=== PATIENT | male | born 1960 | race Caucasian/White ===

== ENCOUNTER → 2017-10-27 | Outpatient (CLI) | payer BC ==
[~2017-10-27] MED LIST: ASPCH81X PO; ATEN50TA8 PO; ATOR-24 PO; EPP3/2 IM; HYDR12.55 PO; LEVO200T6 PO; LSN5 PO; MCR5 PO; METF500T PO
--- NOTE | 2017-10-27 14:15 | DIAGNOSTIC IMAGING REPORT ---
CAROTID DOPPLER NECK ART CLINICAL HISTORY: 57 years-old Male with B/O CAROTID ARTERY STENOSIS. COMPARISON: Carotid Doppler to 12/30/2013 TECHNIQUE: Multiple real time sonographic images of the carotid bifurcations were obtained assessing bang scale, color Doppler and spectral wave form appearance FINDINGS: RIGHT INTERNAL CAROTID: The peak systolic velocity measured 68 cm/sec. The end diastolic velocity measured 27 cm/sec. The ICA to CCA ratio measured 1.4 which correlates with a stenosis of 0-50%. No significant atherosclerotic plaquing. LEFT INTERNAL CAROTID: The peak systolic velocity measured 95 cm/sec. The end diastolic velocity measured 34 cm/sec. The ICA to CCA ratio measured 1.2 which correlates with a stenosis of 0-50%. No significant atherosclerotic plaquing. There is normal antegrade vertebral flow bilaterally. IMPRESSION: 1. No hemodynamically significant stenosis or significant atherosclerotic plaquing. 2. Normal antegrade vertebral flow bilaterally. The above report was generated using voice recognition software. It may contain grammatical, syntax or spelling errors. Electronically signed by: Andrei Suarez M.D. 10/27/2017 2:13 PM Dictated Date/Time: 10/27/2017 2:11 PM
== END | disposition home or self-care (01) ==
LOC: C.ULTR 10:10
PROVIDERS: ATTEND Physician Assistant Medical
DX: I65.23 Occlusion and stenosis of bilateral carotid arteries (principal)

== ENCOUNTER 2024-07-07 18:07 | Observation (INO) ==
[2024-07-07 18:12] VITALS: TEMP 97.7
[2024-07-07 18:40] LABS: Basophils # (auto) 0.05 K/uL (0.00-0.20); Basophils % (auto) 0.7 %; Eosinophils # (auto) 0.28 K/uL (0.00-0.50); Eosinophils % (auto) 3.9 %; Hematocrit (blood only) 43.6 % (42.0-52.0); Hemoglobin 14.4 g/dl (14.0-18.0); Immature Granulocytes # (auto) 0.03 K/uL (0.01-0.20); Immature Granulocytes % (auto) 0.4 %; Lymphocytes # (auto) 2.12 K/uL (1.20-3.40); Lymphocytes % (auto) 29.3 %; Mean Corpuscular Hemoglobin 31.4 pg (25.0-34.0); Mean Corpuscular Volume 95.2 fL (80.0-100.0); Mean Platelet Volume 10.3 fL (9.4-12.4); Monocytes # (auto) 0.44 K/uL (0.11-0.59); Monocytes % (auto) 6.1 %; Neutrophils # (auto) 4.31 K/uL (1.40-6.50); Neutrophils % (auto) 59.6 %; Platelet Count 168 K/uL (130-400); RDW Coefficient of Variation 14.4 % (11.5-14.5); RDW Standard Deviation 49.7 fL (36.4-46.3); Red Blood Count 4.58 M/uL (4.70-6.10); White Blood Count 7.23 K/ul (4.8-10.8)
--- NOTE | 2024-07-07 18:41 | Emergency Department Note ---
Impression & Plan Chest pain, SOB (shortness of breath), Bronchitis, Esophagitis ED Provider Note CHIEF COMPLAINT: Chest pain HISTORY OF PRESENTING ILLNESS: This 63-year-old male patient presents to the emergency department for evaluation of chest pain that started 2 days ago. The patient initially thought it was a pulled muscle from twisting weird. He stayed home from work yesterday to rest without improvement of the symptoms. He went to work today and the symptoms got worse. He feels like there is a tightness in his chest that goes all the way around his chest and radiates into his back. He denies abdominal pain, but the chest pain is near the epigastric area. He is also having some shortness of breath. He rates his discomfort as 8/10. He denies a previous history of heart problems. He states that his last cardiac workup was over 20 years ago. Family history of strokes, but no family history of heart problems that he knows of. No history of pancreatitis. He denies nausea or vomiting. No fevers. He denies any cough or URI symptoms. He smokes 1 ppd. Denies vaping. Rare ETOH use. He is not on any blood thinners. He has a history of DM and HTN. He took 81 mg ASA this morning. The patient does have a port in place due to his history of prostate cancer. However, he is no longer receiving medication through his port. REVIEW OF SYSTEMS: See HPI for pertinent positives and pertinent negatives. ALLERGIES: Honey bees MEDICATIONS: See below PAST MEDICAL HISTORY: See below PHYSICAL EXAM: VITALS: Vitals are noted on the nurse's note and reviewed by myself. GENERAL: Non toxic, no acute distress, non-diaphoretic. SKIN: Capillary refill <2 sec. EYES: PERRLA. EOMI. Conjunctivae without injection, sclerae without icterus. NOSE: Patent without discharge. MOUTH: Mucous membranes moist. Uvula midline. Airway patent. NECK: Supple without nuchal rigidity. HEART: Regular rate and rhythm without murmurs gallops or rubs. LUNGS: Clear to auscultation bilaterally without wheezes, rales or rhonchi. No retractions or accessory muscle use. CHEST: No chest wall tenderness, but the patient points to the sternal area in the center of the chest for where he has the most pain. ABDOMEN: Positive bowel sounds x 4. Normal tympanic percussion. Soft, mildly tender to palpation in the epigastric area. No masses or organomegaly. Noriega sign negative. No guarding or rebound tenderness. No focal RLQ or LLQ tenderness. MUSCULOSKELETAL: No gross musculoskeletal defects. Peripheral pulses 2+ and equal in the bilateral upper and lower extremities. NEURO: Patient was alert and oriented. No focal neurological deficits. DIFFERENTIAL DIAGNOSIS: Differential diagnosis includes angina, NC, pericarditis, myocarditis, aortic dissection, pleurisy, pneumothorax, PE, pneumonia, pneumomediastinum, esophagitis, esophageal spasm, GERD, perforated esophagus, perforated duodenal/gastric ulcer, pancreatitis, cholecystitis, costochondritis, musculoskeletal, bronchitis, URI, or others. ED COURSE AND MEDICAL DECISION MAKING: MEDICATIONS GIVEN: 500 mL normal saline solution bolus. Tylenol 1000 mg IV. Protonix 40 mg IV and Pepcid 20 mg IV. Nitroglycerin 0.4 mg sublingual. DuoNeb treatment. Morphine 4 mg IV and Zofran 4 mg IV. MONITOR: Continuous panel monitor: Order was placed for continuous panel monitor. Patient was placed on the panel monitor and continuous pulse ox. Patient was noted to be in normal sinus rhythm at an initial rate of 86 bpm per my interpretation. EKG: EKG was interpreted by myself as normal sinus rhythm at 83 bpm with left axis deviation, but no acute ST or T wave changes. INTERPRETATION OF LABS: I interpreted the labs with full lab results as below in the lab section of this note. Pertinent lab results discussed in the MDM section below. INTERPRETATION OF IMAGING: Imaging studies were interpreted by myself and read by radiology as per the imaging section of this note. Chest x-ray negative for acute cardiopulmonary etiology. CTA of the chest with IV contrast was negative for PE. It does show mild bronchial wall thickening which could represent bronchitis. There is mild prominence of the wall of the esophagus which may represent esophagitis. Stable sclerotic lesion in the left seventh rib with old left-sided rib fracture deformities. Mild atherosclerotic changes in the aorta, but no aortic aneurysm or dissection. CT scan of the abdomen pelvis with IV contrast showed mild prominence of the bladder wall which is nonspecific. Stable sclerotic lesions in the pelvic bones. No other acute abnormalities. CONSULTATIONS: On-call hospitalist MDM SUMMARY: The patient was seen during a time of extreme volume and extreme acuity. Nursing triage protocols were initiated with IV lock, labs, and/or imaging studies conducted by protocol in the triage area. The patient was initially evaluated in a triage room and then re-evaluated once they were taken back to an exam room. The patient started with central and substernal chest pain 2 days ago that radiates to his back and wraps around his upper abdomen per patient. He states that he took off work yesterday to try to rest, but had worsening symptoms today when he went back to work. He denies a personal or family history of heart problems, but does have diabetes and high blood pressure. He smokes 1 pack/day, but denies vaping. He is having some shortness of breath with the symptoms as well. He denies any fevers, cough, or URI symptoms at this time. Chest x-ray, EKG, and initial high-sensitivity troponin did not show any acute abnormalities. White blood cell count normal at 7.23. Hemoglobin normal at 14.4. Platelet count normal at 168. Coags were normal. Glucose 166, but CMP otherwise normal. Lipase normal. Magnesium normal. Repeat high-sensitivity troponin was normal. Urinalysis unremarkable. COVID-negative. CTA of the chest with IV contrast was negative for PE. It does show mild bronchial wall thickening which could represent bronchitis. There is mild prominence of the wall of the esophagus which may represent esophagitis. Stable sclerotic lesion in the left seventh rib with old left-sided rib fracture deformities. Mild atherosclerotic changes in the aorta, but no aortic aneurysm or dissection. CT scan of the abdomen pelvis with IV contrast showed mild prominence of the bladder wall which is nonspecific. Stable sclerotic lesions in the pelvic bones. No other acute abnormalities. The patient had been hydrated with 500 mL normal saline solution bolus. Initially the patient was given Tylenol 1000 mg IV and Pepcid 20 mg IV in the waiting room without any change in his symptoms. Once the patient was taken back to a room and placed on a monitor, he was given sublingual nitroglycerin without any change in his symptoms. Once the results of the CT scans were received, he was given Protonix 40 mg IV and a DuoNeb treatment. However, this did not change his symptoms either. He was then given morphine 4 mg IV and Zofran 4 mg IV. The patient did have some episodes of PVCs and bigeminy on the monitor during his stay. The patient is still complaining of the same chest pain and shortness of breath for which he presented to the ER. While the symptoms may be secondary to his bronchitis and/or esophagitis, I recommended admission due to his continued symptoms despite the treatment above to rule out other cardiac or pulmonary etiologies of his symptoms. I spoke with the on-call hospitalist who agreed to admit the patient for further management. Please refer to their dictation for further details. The patient's care was transferred in stable condition. DIAGNOSIS: Chest pain Shortness of breath Bronchitis Esophagitis Past Med/Surg History Problem List (Updated 07/08/24 @ 00:37 by Gabi Martines PA-C) Esophagitis (Acute) Bronchitis (Acute) SOB (shortness of breath) (Acute) Chest pain (Acute) Post-op pain (Acute) Knee pain, left Effusion, left knee Left knee DJD Encounter for pre-operative examination Encounter for pre-operative examination BRICE (dyspnea on exertion) Benign essential hypertension Atherogenic dyslipidemia BRICE (dyspnea on exertion) History of colon polyps BPH loc w urin obs/LUTS Elevated PSA Urinary urgency Prostate cancer Fatigue Urinary retention UTI (urinary tract infection) Medical History (Updated 07/08/24 @ 00:37 by Gabi Martines PA-C) Prostate cancer Hx of prostatic malignancy dx mid may 2023, current chemo tx. 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 BPH (benign prostatic hyperplasia) BRICE (dyspnea on exertion) Chronic/stable- can do one flight of stairs without significant SOB or chest pain History of transient ischemic attack (TIA) Around 2009- no residual issues- no issues since that time Hypothyroid Sleep apnea CPAP Elevated cholesterol Hypertension Diabetes Surgical History (Updated 09/03/23 @ 10:16 by Maya Germain RN) Port-A-Cath in place (09/03/23) Access Port Placement Left Cephalic Vein(Left) - Alex Galan MD, FACS History of tooth extraction History of tonsillectomy History of cardiac cath [place] > over 10 yrs ago no stents; no longer w/cardio. History of arthroscopy Left Knee Arthroscopy, Debridement Bipartite Patella Excision, Lateral Release, Synovectomy, Chondroplasty(Left) - Loki Salcedo MD History of colonoscopy History of lung surgery BIOPSY - REMOTE HX - RIGHT Family History Father Diabetes Family/Other Breast cancer Other Coronary heart disease Social History (Updated 08/25/23 @ 16:27 by Ivon Felipe RN) Smoking Status: Current every day smoker Tobacco Type: Cigarettes packs per day: 1; Cigarettes Per Day: 20; Second Hand Exposure: No; Do You Dip or Chew Tobacco: Yes (quit 20 years ago; advised); Hx Alcohol Use: Yes Alcohol type: hard liquor Hx Substance Use: No Preferred Language: French Communication Ability: Effective Visual Impairment: No Limitations Nougat Candy Maker Helper Required: No Beliefs That Will Affect Care: None marital status: Current Living Situation: Parent Current Living Situation Comment: Patient lives with his mother (mother in his house), 2 LIV current occupational status: employed 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 How many Children do You have: 3 Other Information That Helps Us Care for You: No Feels Safe at Home: Yes Safety Concerns: Feels Safe At This Time during the past year weight has: remained stable Assistive Devices: Denture - Upper and Glasses Allergies Allergies Allergy/AdvReac Type Severity Reaction Status Date / Time bee venom protein (honey bee) Allergy Severe ANAPHYLAXIS Verified 07/07/24 21:20 Home Meds Home Medications Medication Instructions Recorded Confirmed atorvastatin 80 mg tablet 80 mg PO HS 05/31/20 07/07/24 glyburide 5 mg tablet 5 mg PO BID 05/31/20 07/07/24 levothyroxine 200 mcg tablet 200 mcg PO QAM 05/31/20 07/07/24 (Euthyrox) metformin 500 mg tablet 1,000 mg PO BID 05/31/20 07/07/24 metoprolol succinate 50 mg 50 mg PO QAM 05/31/20 07/07/24 tablet,extended release 24 hr lisinopril 5 mg tablet 2.5 mg PO QAM 09/13/20 07/07/24 ibuprofen 200 mg capsule 400 mg PO QAM 11/29/20 07/07/24 turmeric 400 mg capsule 400 mg PO DAILY 11/29/20 07/07/24 tamsulosin 0.4 mg capsule (Flomax) 0.8 mg PO QAM 08/26/23 07/07/24 enzalutamide 40 mg capsule (Xtandi) 0 mg PO QPM 07/07/24 07/07/24 multivitamin with minerals-folic 1 tab PO DAILY 07/07/24 07/07/24 acid 400 mcg-lycopene 370 mcg tablet (One-A-Day Men's 50 Plus) semaglutide 0.25 mg or 0.5 mg (2 5 mg subcut WK 07/07/24 07/07/24 mg/3 mL) subcutaneous pen injector (Ozempic) Results & Data (ED) Vital Signs Vital Signs - 24 hr 07/07/24 18:08 07/07/24 20:12 07/07/24 20:39 Temperature 36.5 C Temperature Source Temporal Artery Scan Pulse Rate 84 71 67 Pulse Rate from SpO2 Sensor 71 67 Respiratory Rate 20 13 13 Respiratory Effort / Characteristics Non-Labored Spontaneous Respiratory Depth Normal Respiratory Pattern Regular Blood Pressure 159/84 H 135/87 127/81 Blood Pressure [Right Arm] Blood Pressure Mean 109 103 96 Blood Pressure Mean [Right Arm] Pulse Oximetry 97 94 96 Oxygen Delivery Method Room Air Sepsis Recent Fever Within 48 Hours No Sepsis New/Unexplained Change in Mental Status N/A Sepsis Action Taken by Nursing No Action Required 07/07/24 20:46 07/07/24 21:01 07/07/24 21:53 Temperature Temperature Source Pulse Rate 68 Pulse Rate from SpO2 Sensor Respiratory Rate 14 Respiratory Effort / Characteristics Respiratory Depth Respiratory Pattern Blood Pressure 100/83 116/65 Blood Pressure [Right Arm] Blood Pressure Mean 84 77 Blood Pressure Mean [Right Arm] Pulse Oximetry 95 96 Oxygen Delivery Method Room Air Sepsis Recent Fever Within 48 Hours Sepsis New/Unexplained Change in Mental Status Sepsis Action Taken by Nursing 07/07/24 22:48 07/07/24 23:00 07/07/24 23:00 Temperature Temperature Source Pulse Rate 87 74 Pulse Rate from SpO2 Sensor 87 69 Respiratory Rate 17 28 H Respiratory Effort / Characteristics Respiratory Depth Respiratory Pattern Blood Pressure 141/71 H 146/84 H Blood Pressure [Right Arm] Blood Pressure Mean 94 120 Blood Pressure Mean [Right Arm] Pulse Oximetry 100 100 Oxygen Delivery Method Sepsis Recent Fever Within 48 Hours Sepsis New/Unexplained Change in Mental Status Sepsis Action Taken by Nursing 07/07/24 23:00 07/07/24 23:00 07/07/24 23:00 Temperature Temperature Source Pulse Rate Pulse Rate from SpO2 Sensor Respiratory Rate Respiratory Effort / Characteristics Respiratory Depth Respiratory Pattern Blood Pressure 146/84 H 146/84 H 146/84 H Blood Pressure [Right Arm] Blood Pressure Mean 120 120 120 Blood Pressure Mean [Right Arm] Pulse Oximetry Oxygen Delivery Method Sepsis Recent Fever Within 48 Hours Sepsis New/Unexplained Change in Mental Status Sepsis Action Taken by Nursing 07/07/24 23:10 07/07/24 23:30 07/07/24 23:30 Temperature Temperature Source Pulse Rate 84 Pulse Rate from SpO2 Sensor Respiratory Rate Respiratory Effort / Characteristics Respiratory Depth Respiratory Pattern Blood Pressure 152/88 H 152/88 H Blood Pressure [Right Arm] Blood Pressure Mean 125 125 Blood Pressure Mean [Right Arm] Pulse Oximetry Oxygen Delivery Method Sepsis Recent Fever Within 48 Hours Sepsis New/Unexplained Change in Mental Status Sepsis Action Taken by Nursing 07/07/24 23:30 07/07/24 23:30 07/07/24 23:30 Temperature Temperature Source Pulse Rate Pulse Rate from SpO2 Sensor Respiratory Rate Respiratory Effort / Characteristics Respiratory Depth Respiratory Pattern Blood Pressure 152/88 H 152/88 H 152/88 H Blood Pressure [Right Arm] Blood Pressure Mean 125 125 125 Blood Pressure Mean [Right Arm] Pulse Oximetry Oxygen Delivery Method Sepsis Recent Fever Within 48 Hours Sepsis New/Unexplained Change in Mental Status Sepsis Action Taken by Nursing 07/07/24 23:30 07/08/24 00:00 Temperature Temperature Source Pulse Rate 84 Pulse Rate from SpO2 Sensor 86 Respiratory Rate 20 Respiratory Effort / Characteristics Respiratory Depth Normal Respiratory Pattern Blood Pressure Blood Pressure [Right Arm] 129/82 Blood Pressure Mean Blood Pressure Mean [Right Arm] 97 Pulse Oximetry 95 Oxygen Delivery Method Room Air Sepsis Recent Fever Within 48 Hours Sepsis New/Unexplained Change in Mental Status Sepsis Action Taken by Nursing Laboratory Data 07/07/24 18:17 07/07/24 18:17 Lab Results 07/07/24 07/07/24 07/07/24 Range/Units 18:17 20:30 Unknown WBC 7.23 (4.8-10.8) K/ul RBC 4.58 L (4.70-6.10) M/uL Hgb 14.4 (14.0-18.0) g/dl Hct 43.6 (42.0-52.0) % MCV 95.2 (80.0-100.0) fL MCH 31.4 (25.0-34.0) pg MCHC 33.0 (32.0-36.0) g/dL RDW Std Deviation 49.7 H (36.4-46.3) fL RDW Coeff of Froylan 14.4 (11.5-14.5) % Plt Count 168 (130-400) K/uL MPV 10.3 (9.4-12.4) fL Immature Gran % (Auto) 0.4 % Neut % (Auto) 59.6 % Lymph % (Auto) 29.3 % [place] % (Auto) 6.1 % Eos % (Auto) 3.9 % Baso % (Auto) 0.7 % Neut # (Auto) 4.31 (1.40-6.50) K/uL Lymph # (Auto) 2.12 (1.20-3.40) K/uL [place] # (Auto) 0.44 (0.11-0.59) K/uL Eos # (Auto) 0.28 (0.00-0.50) K/uL Baso # (Auto) 0.05 (0.00-0.20) K/uL Immature Gran # (Auto) 0.03 (0.01-0.20) K/uL PT 9.9 (9.0-12.0) Seconds INR 0.9 (0.9-1.1) APTT 22 (21-31) Seconds PTT Ratio 0.8 Sodium 140 (136-145) mmol/L Potassium 4.1 (3.5-5.1) mmol/L Chloride 105 (98-107) mmol/L Carbon Dioxide 28 (21-32) mmol/L Anion Gap 7 (3-11) BUN 17 (6-23) mg/dl Creatinine 0.92 (0.6-1.4) mg/dl Est Cr Clr Drug Dosing 119.1 ml/min Est GFR ( Amer) 103.7 ml/min Est GFR (Non-Af Amer) 89.5 ml/min BUN/Creatinine Ratio 18.5 (10-20) Glucose 166 H (70-99(Fasting)) mg/dl Calcium 9.2 (8.6-10.3) mg/dl Magnesium 1.7 (1.7-2.4) mg/dl Total Bilirubin 0.6 (0.2-1.0) mg/dl AST 17 (13-39) U/L ALT 15 (7-52) U/L Alkaline Phosphatase 91 (34-104) U/L Troponin I High Sens 4.0 4.0 (0-20) pg/ml Total Protein 6.8 (6.0-8.3) gm/dl Albumin 4.0 (3.4-5.0) gm/dl Globulin 2.8 (2.5-4.0) gm/dl Albumin/Globulin Ratio 1.4 (0.9-2) Lipase 40 (11-82) U/L Urine Color Yellow Urine Appearance Clear (Clear) Urine pH 5.0 (4.5-7.5) Ur Specific Beauty > 1.045 H (1.000-1.030) Urine Protein Negative (Negative) Urine Glucose (UA) Negative (Negative) Urine Ketones Negative (Negative) Urine Blood Negative (Negative) Urine Nitrite Negative (Negative) Urine Bilirubin Negative (Negative) Urine Urobilinogen Negative (Negative) Ur Leukocyte Esterase Negative (Negative) SARS-CoV-2, RNA, NAAT NEGATIVE (NEGATIVE) Administered Medications Discontinued Medications Albuterol (Albut/Ipratrop 3mg/0.5mg Neb 3 Ml Vial) 3 ml NEB NOW STA; Protocol Stop: 07/07/24 21:42 Last Admin: 07/07/24 22:41 Dose: 3 ml Documented By: ELBA Sodium Chloride (Nss) 500 mls @ 999 mls/hr IV .Q31M ONE Stop: 07/07/24 19:20 Last Infusion: 07/07/24 19:41 Dose: Infused Documented By: Admin: 07/07/24 19:01 Dose: 999 mls/hr Documented By: AKI Acetaminophen (Ofirmev) 1,000 mg in 100 mls @ 400 mls/hr IV NOW STA Stop: 07/07/24 19:04 Last Infusion: 07/07/24 19:41 Dose: Infused Documented By: Admin: 07/07/24 19:00 Dose: 400 mls/hr Documented By: AKI Famotidine (Pepcid 20mg Iv Push) 20 mg in 5 mls @ 2.5 mls/min IV NOW STA Stop: 07/07/24 18:51 Last Admin: 07/07/24 19:01 Dose: 2.5 mls/min Documented By: AKI Pantoprazole Sodium 40 mg/ (Syringe) 10 mls @ 5 mls/min IV NOW ONE Stop: 07/07/24 21:19 Last Admin: 07/07/24 22:48 Dose: 5 mls/min Documented By: ELBA Ioversol (Optiray 320 125ml) 118 ml IV ONCE ONE Stop: 07/07/24 19:21 Last Admin: 07/07/24 19:20 Dose: 118 ml Documented By: SAM Morphine Sulfate (Morphine Sulfate 4 Mg/Ml 1 Ml Carp\Vial) 4 mg IV NOW STA Stop: 07/07/24 23:17 Last Admin: 07/07/24 23:36 Dose: 4 mg Documented By: DORA Nitroglycerin (Nitroglycerin Sl 0.4 Mg/Tab Tab) 0.4 mg SL NOW STA Stop: 07/07/24 20:12 Last Admin: 07/07/24 20:23 Dose: 0.4 mg Documented By: ELBA Ondansetron HCl (Ondansetron Inj 2 Mg/Ml 2 Ml Vial) 4 mg IV NOW STA Stop: 07/07/24 23:17 Last Admin: 07/07/24 23:35 Dose: 4 mg Documented By: DORA Imaging Data Radiologist's Impression: Chest X-Ray 07/07/24 18:12 SINGLE VIEW CHEST CLINICAL HISTORY: Atypical chest pain FINDINGS: A PA chest radiograph is compared to study dated 09/03/2023 and correlated with chest CT dated 06/17/2024. A left subclavian central venous infusion port is unchanged in position. The cardiomediastinal silhouette is unremarkable noting atherosclerotic calcification of the thoracic aorta. There is mild bibasilar scarring/atelectasis. Postsurgical change is noted at the left lung base. No airspace consolidation or pleural effusion is identified. No pneumothorax is seen. There is chronic deformity of the left-sided ribs. IMPRESSION: No active disease in the chest. ACT 112: Negative or not required by law. Electronically signed by: Velasquez Stinson M.D. 07/07/2024 7:19 PM Abdomen/Pelvis CT 07/07/24 18:50 Exam(s): CT ABDOMEN + PELVIS With Contrast IV Amt: 118ml optiray 320 EXAM: CT Abdomen and Pelvis With Intravenous Contrast CLINICAL HISTORY: Reason for exam: upper abdominal pain and chest pain. TECHNIQUE: Axial computed tomography images of the abdomen and pelvis with intravenous contrast. CTDI is 28 mGy and DLP is 1419 mGy-cm. Automated exposure control was utilized for the study. A dose lowering technique was utilized adhering to the principles of ALARA. CONTRAST: Patient received 118ml optiray 320 of IV contrast COMPARISON: CT abdomen/pelvis on 06/17/2024 FINDINGS: Lung bases: Please see accompanying CT chest for further details. ABDOMEN: Liver: Unremarkable. No mass. Gallbladder and bile ducts: Unremarkable. No calcified stones. No ductal dilation. Pancreas: Unremarkable. No mass. No ductal dilation. Spleen: Unremarkable. No splenomegaly. Adrenals: Small stable left adrenal nodule. Kidneys and ureters: Nonspecific mild bilateral perinephric fat stranding. Nodular versus or obstructing ureteral stone. Stomach and bowel: Evaluation of the stomach is limited by underdistention. Diverticulosis without evidence of diverticulitis. No small bowel obstruction. PELVIS: Appendix: Normal appendix. Bladder: Mild prominence of the bladder wall is nonspecific. Please correlate with urinalysis if concerned for cystitis. Reproductive: Unremarkable as visualized. ABDOMEN and PELVIS: Intraperitoneal space: Unremarkable. No free air. No significant fluid collection. Bones/joints: Degenerative changes of the spine. Grade 1 anterolisthesis of L5 on S1. No acute fracture. No dislocation. Stable sclerotic lesion in the right iliac bone. Other stable small sclerotic foci in the pelvic bones. Soft tissues: Small fat-containing left hernia. Vasculature: Atherosclerotic changes of the vasculature. No abdominal aortic aneurysm or dissection. Lymph nodes: Unremarkable. No enlarged lymph nodes. IMPRESSION: Mild prominence of the bladder wall is nonspecific. Please correlate with urinalysis if concerned for cystitis. No other acute abnormality in the abdomen or pelvis. Stable sclerotic lesions in the pelvic bones. Electronically signed by: Mak Quintero M.D. 07/07/24 21:04 PM Chest CTA 07/07/24 18:50 Exam(s): CTA CHEST IV Amt: 118ml optiray 320 EXAM: CT Angiography Chest With Intravenous Contrast CLINICAL HISTORY: Reason for exam: PE. TECHNIQUE: Axial computed tomographic angiography images of the chest with intravenous contrast. CTDI is 28 mGy and DLP is 1419 mGy-cm. Automated exposure control was utilized for the study. A dose lowering technique was utilized adhering to the principles of ALARA. MIP reconstructed images were created and reviewed. COMPARISON: CT chest on 06/17/2024 FINDINGS: Pulmonary arteries: Unremarkable. No pulmonary embolus identified. Aorta: Mild atherosclerotic changes in the aorta. No aortic aneurysm or dissection. Lungs: Mild bronchial wall thickening could represent bronchitis. Mild bibasilar atelectasis. Probable postsurgical change at the left lung base. No mass. Pleural space: Unremarkable. No significant effusion. No pneumothorax. Heart: Trace pericardial fluid. Mild coronary artery calcifications. No cardiomegaly. No evidence of RV dysfunction. Mediastinum: Mild prominence of the wall of the esophagus may represent esophagitis. Bones/joints: Stable sclerotic lesion in the left seventh rib. Old left-sided rib fracture deformities. Degenerative changes of the spine. Chronic compression deformity of T7. No dislocation. Soft tissues: Unremarkable. Lymph nodes: Stable 5 mm probable fissural lymph node along the right minor fissure. Adrenals: Probable small left adrenal adenoma. IMPRESSION: 1. No pulmonary embolus identified. 2. Mild bronchial wall thickening could represent bronchitis. 3. Mild prominence of the wall of the esophagus may represent esophagitis. 4. Stable sclerotic lesion in the left seventh rib. Old left-sided rib fracture deformities. 5. Mild atherosclerotic changes in the aorta. No aortic aneurysm or dissection. Electronically signed by: Mak Quintero M.D. 07/07/24 20:56 PM Discharge Plan Visit Data Chief Complaint: Chest Pain Stated Complaint: CHEST PAIN ED Provider: Travis Dent ED Midlevel Provider: Gabi Martines Discharge Problem: Chest pain, SOB (shortness of breath), Bronchitis, Esophagitis Patient Disposition: Admitted As Inpatient Condition: Good Forms Stand Alone Forms: [facility] Prescriptions Prescriptions: No Action lisinopril 5 mg tablet 2.5 mg PO QAM ibuprofen 200 mg Capsule 400 mg PO QAM turmeric 400 mg Capsule 400 mg PO DAILY metformin 500 mg tablet 1,000 mg PO BID atorvastatin 80 mg tablet 80 mg PO HS glyburide 5 mg tablet 5 mg PO BID metoprolol succinate 50 mg tablet extended release 24 hr 50 mg PO QAM levothyroxine [Euthyrox] 200 mcg tablet 200 mcg PO QAM tamsulosin [Flomax] 0.4 mg capsule 0.8 mg PO QAM One-A-Day Men's 50 Plus 400-370 mcg Tablet 1 tab PO DAILY Ozempic 0.25 mg or 0.5 mg (2 mg/3 mL) pen injector 5 mg SUBCUT WK Rx Instructions: take this med every Thursday Xtandi 40 mg capsule 0 mg PO QPM Referrals Referrals: Rea Pacheco PA-C [Primary Care Provider] - Discharge Problem: Chest pain Qualifiers: Chest pain type: unspecified Qualified Code(s): R07.9 - Chest pain, unspecified
[2024-07-07 18:56] LABS: Albumin Globulin Ratio 1.4 (0.9-2); BUN Creatinine Ratio 18.5 (10-20); Bilirubin,Total 0.6 mg/dl (0.2-1.0); Calcium 9.2 mg/dl (8.6-10.3); Creatinine Clr Calc Pharmacy 119.1 ml/min; Est GFR (African American) 103.7 ml/min; Est GFR (Non-African American) 89.5 ml/min; Globulin 2.8 gm/dl (2.5-4.0); Potassium 4.1 mmol/L (3.5-5.1); Total Protein 6.8 gm/dl (6.0-8.3)
[2024-07-07] MEDS: ACETAMINOPHEN 1,000 MG/100 ML VIAL IV STA (19:00)
[2024-07-07] MEDS: SODIUM CHLORIDE 0.9% 500 ML IV ONE (19:01)
[2024-07-07] MEDS: FAMOTIDINE 20MG IV PUSH 20 MG/5 ML SYR IV STA (19:01)
[2024-07-07 19:05] LABS: INR 0.9 (0.9-1.1); Partial Thromboplastin Ratio 0.8; Partial Thromboplastin Time 22 Seconds (21-31); Prothrombin Time 9.9 Seconds (9.0-12.0)
[2024-07-07] MEDS: OPTIRAY 320 125ml IV ONE (19:20)
--- NOTE | 2024-07-07 19:20 | XRay Report ---
SINGLE VIEW CHEST CLINICAL HISTORY: Atypical chest pain FINDINGS: A PA chest radiograph is compared to study dated 09/03/2023 and correlated with chest CT da merry 06/17/2024. A left subclavian central venous infusion port is unchanged in position. The cardiomedi astinal silhouette is unremarkable noting atherosclerotic calcification of the thoracic aorta. There is mild bibasilar scarring/atelectasis. Postsurgical change is noted at the left lung base. No airspa ce consolidation or pleural effusion is identified. No pneumothorax is seen. There is chronic deformi ty of the left-sided ribs. IMPRESSION: No active disease in the chest. ACT 112: Negative or not required by law. Electronically signed by: Velasquez Stinson M.D. 07/07/2024 7:19 PM
[2024-07-07 19:58] LABS: Magnesium 1.7 mg/dl (1.7-2.4)
[2024-07-07] MEDS: NITROGLYCERIN SL 0.4 MG/TAB TAB SL STA (20:23)
--- NOTE | 2024-07-07 20:57 | CT Scan Report ---
Exam(s): CTA CHEST IV Amt: 118ml optiray 320 EXAM: CT Angiography Chest With Intravenous Contrast CLINICAL HISTORY: Reason for exam: PE. TECHNIQUE: Axial computed tomographic angiography images of the chest with intravenous contrast. CTDI is 28 mGy and DLP is 1419 mGy-cm. Automated exposure control was utilized for the study. A dose lowering technique was utilized adhering to the principles of ALARA. MIP reconstructed images were created and reviewed. COMPARISON: CT chest on 06/17/2024 FINDINGS: Pulmonary arteries: Unremarkable. No pulmonary embolus identified. Aorta: Mild atherosclerotic changes in the aorta. No aortic aneurysm or dissection. Lungs: Mild bronchial wall thickening could represent bronchitis. Mild bibasilar atelectasis. Probable postsurgical change at the left lung base. No mass. Pleural space: Unremarkable. No significant effusion. No pneumothorax. Heart: Trace pericardial fluid. Mild coronary artery calcifications. No cardiomegaly. No evidence of RV dysfunction. Mediastinum: Mild prominence of the wall of the esophagus may represent esophagitis. Bones/joints: Stable sclerotic lesion in the left seventh rib. Old left-sided rib fracture deformities. Degenerative changes of the spine. Chronic compression deformity of T7. No dislocation. Soft tissues: Unremarkable. Lymph nodes: Stable 5 mm probable fissural lymph node along the right minor fissure. Adrenals: Probable small left adrenal adenoma. IMPRESSION: 1. No pulmonary embolus identified. 2. Mild bronchial wall thickening could represent bronchitis. 3. Mild prominence of the wall of the esophagus may represent esophagitis. 4. Stable sclerotic lesion in the left seventh rib. Old left-sided rib fracture deformities. 5. Mild atherosclerotic changes in the aorta. No aortic aneurysm or dissection. Electronically signed by: Mak Quintero M.D. 07/07/24 20:56 PM
--- NOTE | 2024-07-07 21:05 | CT Scan Report ---
Exam(s): CT ABDOMEN + PELVIS With Contrast IV Amt: 118ml optiray 320 EXAM: CT Abdomen and Pelvis With Intravenous Contrast CLINICAL HISTORY: Reason for exam: upper abdominal pain and chest pain. TECHNIQUE: Axial computed tomography images of the abdomen and pelvis with intravenous contrast. CTDI is 28 mGy and DLP is 1419 mGy-cm. Automated exposure control was utilized for the study. A dose lowering technique was utilized adhering to the principles of ALARA. CONTRAST: Patient received 118ml optiray 320 of IV contrast COMPARISON: CT abdomen/pelvis on 06/17/2024 FINDINGS: Lung bases: Please see accompanying CT chest for further details. ABDOMEN: Liver: Unremarkable. No mass. Gallbladder and bile ducts: Unremarkable. No calcified stones. No ductal dilation. Pancreas: Unremarkable. No mass. No ductal dilation. Spleen: Unremarkable. No splenomegaly. Adrenals: Small stable left adrenal nodule. Kidneys and ureters: Nonspecific mild bilateral perinephric fat stranding. Nodular versus or obstructing ureteral stone. Stomach and bowel: Evaluation of the stomach is limited by underdistention. Diverticulosis without evidence of diverticulitis. No small bowel obstruction. PELVIS: Appendix: Normal appendix. Bladder: Mild prominence of the bladder wall is nonspecific. Please correlate with urinalysis if concerned for cystitis. Reproductive: Unremarkable as visualized. ABDOMEN and PELVIS: Intraperitoneal space: Unremarkable. No free air. No significant fluid collection. Bones/joints: Degenerative changes of the spine. Grade 1 anterolisthesis of L5 on S1. No acute fracture. No dislocation. Stable sclerotic lesion in the right iliac bone. Other stable small sclerotic foci in the pelvic bones. Soft tissues: Small fat-containing left hernia. Vasculature: Atherosclerotic changes of the vasculature. No abdominal aortic aneurysm or dissection. Lymph nodes: Unremarkable. No enlarged lymph nodes. IMPRESSION: Mild prominence of the bladder wall is nonspecific. Please correlate with urinalysis if concerned for cystitis. No other acute abnormality in the abdomen or pelvis. Stable sclerotic lesions in the pelvic bones. Electronically signed by: Mak Quintero M.D. 07/07/24 21:04 PM
[2024-07-07 22:07] LABS: Appearance Urine Clear (Clear); Bilirubin Urine Negative (Negative); Blood Urine Negative (Negative); Color Urine Yellow; Glucose Urine UA Negative (Negative); Ketones Urine Negative (Negative); Leukocyte Esterase Urine Negative (Negative); Nitrite Urine Negative (Negative); Protein Urine Negative (Negative); Specific Gravity Urine > 1.045 (1.000-1.030); Urobilinogen Urine Negative (Negative)
[2024-07-07] MEDS: ALBUT/IPRATROP 3MG/0.5MG NEB 3 ML VIAL NEB STA (22:41)
[2024-07-07] MEDS: PANTOprazole 40 MG in SYRINGE 0 ML IV ONE (22:48)
[2024-07-07] MEDS: ONDANSETRON INJ 2 MG/ML 2 ML VIAL IV STA (23:35)
[2024-07-07] MEDS: MoRPHine SULFATE 4 MG/ML 1 ML CARP\\VIAL IV STA (23:36)
--- NOTE | 2024-07-08 01:06 | History & Physical Report ---
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 Initial troponin 4 with follow-up 4 Continue lisinopril and metoprolol succinate Esophagitis- Suggested on CT angio PE protocol, which was negative for PE He did receive pantoprazole and famotidine IV from the ED Started on pantoprazole 40 mg p.o. twice daily If cardiac workup is negative, neck step is to look at GI, likely on an outpatient basis Tobacco use disorder- Cessation counseling Diabetes mellitus- Hold Ozempic, metformin and glyburide Placed on Accu-Cheks with NovoLog SSI Prostate cancer with LUTS- Continue Xtandi, dose needs to be verified Continue tamsulosin Sleep apnea- Patient reports that he was able to get a CPAP device on his own, which there is a company that monitors him electronically. It does not sound like he has seen a physician in the past few years, and this may need to be addressed History of Present Illness Chief Complaint: The patient presents to the emergency department with complaint of epigastric an d substernal chest discomfort that began about 3 days ago, but worsened over the next 2 days Primary Care Provider: Rea Pacheco The patient is a 63-year-old male with a past medical history including hypertension, obesity, dyslipidemia, prostate cancer with LUTS, history urinary tract infection, diabetes mellitus, hypothyroidism, hypertension, and tobacco abuse disorder. He presents to the emergency department with symptoms of epigastric and substernal chest discomfort, that initially gave about 3 days ago, and became more significant over the past 2 days. He denies any recent travels or sick exposures. He continues to smoke pack per day. He is chronically short of breath but more so over the past few days. He does not take NSAIDs on a regular basis, but does take a baby aspirin daily. He denies any recent change in food or liquid intake. He occasionally drinks alcohol. Allergies Allergy/AdvReac Type Severity Reaction Status Date / Time bee venom protein (honey bee) Allergy Severe ANAPHYLAXIS Verified 07/07/24 21:20 Home Medications Medication Instructions Recorded Confirmed Type atorvastatin 80 mg tablet 80 mg PO HS 05/31/20 07/07/24 History glyburide 5 mg tablet 5 mg PO BID 05/31/20 07/07/24 History levothyroxine 200 mcg tablet 200 mcg PO QAM 05/31/20 07/07/24 History (Euthyrox) metformin 500 mg tablet 1,000 mg PO BID 05/31/20 07/07/24 History metoprolol succinate 50 mg 50 mg PO QAM 05/31/20 07/07/24 History tablet,extended release 24 hr lisinopril 5 mg tablet 2.5 mg PO QAM 09/13/20 07/07/24 History ibuprofen 200 mg capsule 400 mg PO QAM 11/29/20 07/07/24 History turmeric 400 mg capsule 400 mg PO DAILY 11/29/20 07/07/24 History tamsulosin 0.4 mg capsule (Flomax) 0.8 mg PO QAM 08/26/23 07/07/24 History enzalutamide 40 mg capsule (Xtandi) 0 mg PO QPM 07/07/24 07/07/24 History multivitamin with minerals-folic 1 tab PO DAILY 07/07/24 07/07/24 History acid 400 mcg-lycopene 370 mcg tablet (One-A-Day Men's 50 Plus) semaglutide 0.25 mg or 0.5 mg (2 5 mg subcut WK 07/07/24 07/07/24 History mg/3 mL) subcutaneous pen injector (Ozempic) Past Med/Surg History Problem List (Updated 07/08/24 @ 03:08 by Tony Myers MD) 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 Pt's brothers positive for TTN gene mutation- both have defibrillators Pt is heterozygous for TTN gene mutation per 12/2022 cardio records Hypothyroid Hypertension Diabetes Sleep apnea CPAP Esophagitis (Acute) Bronchitis (Acute) SOB (shortness of breath) (Acute) Chest pain (Acute) Post-op pain (Acute) Knee pain, left Effusion, left knee Left knee DJD Encounter for pre-operative examination Encounter for pre-operative examination BRICE (dyspnea on exertion) Benign essential hypertension Atherogenic dyslipidemia BRICE (dyspnea on exertion) History of colon polyps BPH loc w urin obs/LUTS Elevated PSA Urinary urgency Prostate cancer Fatigue Urinary retention UTI (urinary tract infection) Medical History (Updated 07/08/24 @ 03:08 by Tony Myers MD) Prostate cancer Hx of prostatic malignancy dx mid may 2023, current chemo tx. Metastatic per 06/2023 PET scan Reason for upcoming port placement BPH (benign prostatic hyperplasia) BRICE (dyspnea on exertion) Chronic/stable- can do one flight of stairs without significant SOB or chest pain History of transient ischemic attack (TIA) Around 2009- no residual issues- no issues since that time Elevated cholesterol Surgical History (Updated 09/03/23 @ 10:16 by Maya Germain RN) Port-A-Cath in place (09/03/23) Access Port Placement Left Cephalic Vein(Left) - Alex Galan MD, FACS History of tooth extraction History of tonsillectomy History of cardiac cath [place] > over 10 yrs ago no stents; no longer w/cardio. History of arthroscopy Left Knee Arthroscopy, Debridement Bipartite Patella Excision, Lateral Release, Synovectomy, Chondroplasty(Left) - Loki Salcedo MD History of colonoscopy History of lung surgery BIOPSY - REMOTE HX - RIGHT Family History Father Diabetes Family/Other Breast cancer Other Coronary heart disease Social History (Updated 08/25/23 @ 16:27 by Ivon Felipe, ANGELITO) Smoking Status: Current every day smoker Tobacco Type: Cigarettes packs per day: 1; Cigarettes Per Day: 20; Second Hand Exposure: No; Do You Dip or Chew Tobacco: Yes (quit 20 years ago; advised); Hx Alcohol Use: Yes Alcohol type: hard liquor Hx Substance Use: No Preferred Language: Romanian Communication Ability: Effective Visual Impairment: No Limitations Sheet Rock Applicator Required: No Beliefs That Will Affect Care: None marital status: Current Living Situation: Parent Current Living Situation Comment: Patient lives with his mother (mother in his house), 2 LIV current occupational status: employed 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 How many Children do You have: 3 Other Information That Helps Us Care for You: No Feels Safe at Home: Yes Safety Concerns: Feels Safe At This Time during the past year weight has: remained stable Assistive Devices: Denture - Upper and Glasses Review of Systems Review of Systems: The patient denies palpitations, cough, lower extremity swelling, sore throat, fevers, chills, sweats, nausea, vomiting, diarrhea , constipation, pelvic pain, blood in urine or stool, lightheadedness, dizziness, headache, memory loss, loss of consciousness, rash, abnormal bruising or bleeding, imbalance, focal weakness, numbness or tingling in arms or legs, back or neck pain, or night sweats. The review of systems is otherwise negative other than for that already noted above, and at least 10 systems have been reviewed. Physical Exam Physical Exam: The patient is awake, alert and oriented 3, well developed and well nourished, normocephalic and atraumatic, lying in bed and in no acute distress. HEENT--PERRL, EOMI, mucous membranes and oropharynx normal Neck--supple. No JVD. No bruits. Thyroid normal, trachea midline, no adenopathy. Heart--normal S1 and S2. No murmurs, rubs or gallops. Lungs--few coarse breath sounds bilaterally. No respiratory distress, no accessory muscle use. Abdomen--normal bowel sounds and soft. Nontender. Nondistended. Obese Extremities--No edema. Dermatologic--normal skin turgor, normal color, no abnormal lymph nodes, no rash. Neurologic--cranial nerves II through XII grossly intact. Rheumatologic--normal range of motion. Psychiatric--normal affect. Results & Data Results & Data Vital Signs (Past 12 Hours) Vital Signs Temp Pulse Resp BP BP Pulse Ox O2 Del Method 07/08/24 00:00 129/82 Room Air 07/07/24 23:30 84 20 95 07/07/24 23:30 152/88 H 07/07/24 23:30 152/88 H 07/07/24 23:30 152/88 H 07/07/24 23:30 152/88 H 07/07/24 23:30 152/88 H 07/07/24 23:10 84 07/07/24 23:00 146/84 H 07/07/24 23:00 146/84 H 07/07/24 23:00 146/84 H 07/07/24 23:00 146/84 H 07/07/24 23:00 74 28 H 100 07/07/24 22:48 87 17 141/71 H 100 07/07/24 21:53 96 Room Air 07/07/24 21:01 68 14 116/65 95 07/07/24 20:46 100/83 07/07/24 20:39 67 13 127/81 96 07/07/24 20:12 71 13 135/87 94 07/07/24 18:08 36.5 C 84 20 159/84 H 97 Room Air Laboratory Results Laboratory Results WBC 7.23 K/ul (4.8-10.8) 07/07/24 18:17 RBC 4.58 M/uL (4.70-6.10) L 07/07/24 18:17 Hgb 14.4 g/dl (14.0-18.0) 07/07/24 18:17 Hct 43.6 % (42.0-52.0) 07/07/24 18:17 MCV 95.2 fL (80.0-100.0) 07/07/24 18:17 MCH 31.4 pg (25.0-34.0) 07/07/24 18:17 MCHC 33.0 g/dL (32.0-36.0) 07/07/24 18:17 RDW Std Deviation 49.7 fL (36.4-46.3) H 07/07/24 18:17 RDW Coeff of Froylan 14.4 % (11.5-14.5) 07/07/24 18:17 Plt Count 168 K/uL (130-400) 07/07/24 18:17 MPV 10.3 fL (9.4-12.4) 07/07/24 18:17 Immature Gran % (Auto) 0.4 % 07/07/24 18:17 Neut % (Auto) 59.6 % 07/07/24 18:17 Lymph % (Auto) 29.3 % 07/07/24 18:17 [place] % (Auto) 6.1 % 07/07/24 18:17 Eos % (Auto) 3.9 % 07/07/24 18:17 Baso % (Auto) 0.7 % 07/07/24 18:17 Neut # (Auto) 4.31 K/uL (1.40-6.50) 07/07/24 18:17 Lymph # (Auto) 2.12 K/uL (1.20-3.40) 07/07/24 18:17 [place] # (Auto) 0.44 K/uL (0.11-0.59) 07/07/24 18:17 Eos # (Auto) 0.28 K/uL (0.00-0.50) 07/07/24 18:17 Baso # (Auto) 0.05 K/uL (0.00-0.20) 07/07/24 18:17 Immature Gran # (Auto) 0.03 K/uL (0.01-0.20) 07/07/24 18:17 PT 9.9 Seconds (9.0-12.0) 07/07/24 18:17 INR 0.9 (0.9-1.1) 07/07/24 18:17 APTT 22 Seconds (21-31) 07/07/24 18:17 PTT Ratio 0.8 07/07/24 18:17 Sodium 140 mmol/L (136-145) 07/07/24 18:17 Potassium 4.1 mmol/L (3.5-5.1) 07/07/24 18:17 Chloride 105 mmol/L (98-107) 07/07/24 18:17 Carbon Dioxide 28 mmol/L (21-32) 07/07/24 18:17 Anion Gap 7 (3-11) 07/07/24 18:17 BUN 17 mg/dl (6-23) 07/07/24 18:17 Creatinine 0.92 mg/dl (0.6-1.4) 07/07/24 18:17 Est Cr Clr Drug Dosing 119.1 ml/min 07/07/24 18:17 Est GFR ( Amer) 103.7 ml/min 07/07/24 18:17 Est GFR (Non-Af Amer) 89.5 ml/min 07/07/24 18:17 BUN/Creatinine Ratio 18.5 (10-20) 07/07/24 18:17 Glucose 166 mg/dl (70-99(Fasting)) H 07/07/24 18:17 Calcium 9.2 mg/dl (8.6-10.3) 07/07/24 18:17 Magnesium 1.7 mg/dl (1.7-2.4) 07/07/24 18:17 Total Bilirubin 0.6 mg/dl (0.2-1.0) 07/07/24 18:17 AST 17 U/L (13-39) 07/07/24 18:17 ALT 15 U/L (7-52) 07/07/24 18:17 Alkaline Phosphatase 91 U/L (34-104) 07/07/24 18:17 Troponin I High Sens 4.0 pg/ml (0-20) 07/07/24 20:30 Total Protein 6.8 gm/dl (6.0-8.3) 07/07/24 18:17 Albumin 4.0 gm/dl (3.4-5.0) 07/07/24 18:17 Globulin 2.8 gm/dl (2.5-4.0) 07/07/24 18:17 Albumin/Globulin Ratio 1.4 (0.9-2) 07/07/24 18:17 Lipase 40 U/L (11-82) 07/07/24 18:17 Urine Color Yellow 07/07/24 Unknown Urine Appearance Clear (Clear) 07/07/24 Unknown Urine pH 5.0 (4.5-7.5) 07/07/24 Unknown Ur Specific Victor > 1.045 (1.000-1.030) H 07/07/24 Unknown Urine Protein Negative (Negative) 07/07/24 Unknown Urine Glucose (UA) Negative (Negative) 07/07/24 Unknown Urine Ketones Negative (Negative) 07/07/24 Unknown Urine Blood Negative (Negative) 07/07/24 Unknown Urine Nitrite Negative (Negative) 07/07/24 Unknown Urine Bilirubin Negative (Negative) 07/07/24 Unknown Urine Urobilinogen Negative (Negative) 07/07/24 Unknown Ur Leukocyte Esterase Negative (Negative) 07/07/24 Unknown SARS-CoV-2, RNA, NAAT NEGATIVE (NEGATIVE) 07/07/24 Unknown Impressions Chest X-Ray 07/07/24 18:12 SINGLE VIEW CHEST CLINICAL HISTORY: Atypical chest pain FINDINGS: A PA chest radiograph is compared to study dated 09/03/2023 and correlated with chest CT dated 06/17/2024. A left subclavian central venous infusion port is unchanged in position. The cardiomediastinal silhouette is unremarkable noting atherosclerotic calcification of the thoracic aorta. There is mild bibasilar scarring/atelectasis. Postsurgical change is noted at the left lung base. No airspace consolidation or pleural effusion is identified. No pneumothorax is seen. There is chronic deformity of the left-sided ribs. IMPRESSION: No active disease in the chest. ACT 112: Negative or not required by law. Electronically signed by: Velasquez Stinson M.D. 07/07/2024 7:19 PM Abdomen/Pelvis CT 07/07/24 18:50 Exam(s): CT ABDOMEN + PELVIS With Contrast IV Amt: 118ml optiray 320 EXAM: CT Abdomen and Pelvis With Intravenous Contrast CLINICAL HISTORY: Reason for exam: upper abdominal pain and chest pain. TECHNIQUE: Axial computed tomography images of the abdomen and pelvis with intravenous contrast. CTDI is 28 mGy and DLP is 1419 mGy-cm. Automated exposure control was utilized for the study. A dose lowering technique was utilized adhering to the principles of ALARA. CONTRAST: Patient received 118ml optiray 320 of IV contrast COMPARISON: CT abdomen/pelvis on 06/17/2024 FINDINGS: Lung bases: Please see accompanying CT chest for further details. ABDOMEN: Liver: Unremarkable. No mass. Gallbladder and bile ducts: Unremarkable. No calcified stones. No ductal dilation. Pancreas: Unremarkable. No mass. No ductal dilation. Spleen: Unremarkable. No splenomegaly. Adrenals: Small stable left adrenal nodule. Kidneys and ureters: Nonspecific mild bilateral perinephric fat stranding. Nodular versus or obstructing ureteral stone. Stomach and bowel: Evaluation of the stomach is limited by underdistention. Diverticulosis without evidence of diverticulitis. No small bowel obstruction. PELVIS: Appendix: Normal appendix. Bladder: Mild prominence of the bladder wall is nonspecific. Please correlate with urinalysis if concerned for cystitis. Reproductive: Unremarkable as visualized. ABDOMEN and PELVIS: Intraperitoneal space: Unremarkable. No free air. No significant fluid collection. Bones/joints: Degenerative changes of the spine. Grade 1 anterolisthesis of L5 on S1. No acute fracture. No dislocation. Stable sclerotic lesion in the right iliac bone. Other stable small sclerotic foci in the pelvic bones. Soft tissues: Small fat-containing left hernia. Vasculature: Atherosclerotic changes of the vasculature. No abdominal aortic aneurysm or dissection. Lymph nodes: Unremarkable. No enlarged lymph nodes. IMPRESSION: Mild prominence of the bladder wall is nonspecific. Please correlate with urinalysis if concerned for cystitis. No other acute abnormality in the abdomen or pelvis. Stable sclerotic lesions in the pelvic bones. Electronically signed by: Mak Quintero M.D. 07/07/24 21:04 PM Chest CTA 07/07/24 18:50 Exam(s): CTA CHEST IV Amt: 118ml optiray 320 EXAM: CT Angiography Chest With Intravenous Contrast CLINICAL HISTORY: Reason for exam: PE. TECHNIQUE: Axial computed tomographic angiography images of the chest with intravenous contrast. CTDI is 28 mGy and DLP is 1419 mGy-cm. Automated exposure control was utilized for the study. A dose lowering technique was utilized adhering to the principles of ALARA. MIP reconstructed images were created and reviewed. COMPARISON: CT chest on 06/17/2024 FINDINGS: Pulmonary arteries: Unremarkable. No pulmonary embolus identified. Aorta: Mild atherosclerotic changes in the aorta. No aortic aneurysm or dissection. Lungs: Mild bronchial wall thickening could represent bronchitis. Mild bibasilar atelectasis. Probable postsurgical change at the left lung base. No mass. Pleural space: Unremarkable. No significant effusion. No pneumothorax. Heart: Trace pericardial fluid. Mild coronary artery calcifications. No cardiomegaly. No evidence of RV dysfunction. Mediastinum: Mild prominence of the wall of the esophagus may represent esophagitis. Bones/joints: Stable sclerotic lesion in the left seventh rib. Old left-sided rib fracture deformities. Degenerative changes of the spine. Chronic compression deformity of T7. No dislocation. Soft tissues: Unremarkable. Lymph nodes: Stable 5 mm probable fissural lymph node along the right minor fissure. Adrenals: Probable small left adrenal adenoma. IMPRESSION: 1. No pulmonary embolus identified. 2. Mild bronchial wall thickening could represent bronchitis. 3. Mild prominence of the wall of the esophagus may represent esophagitis. 4. Stable sclerotic lesion in the left seventh rib. Old left-sided rib fracture deformities. 5. Mild atherosclerotic changes in the aorta. No aortic aneurysm or dissection. Electronically signed by: Mak Quintero M.D. 07/07/24 20:56 PM Code Status & VTE Plan Code Status Full code VTE Prophylaxis Plan VTE Prophylaxis will be ordered: Yes PG Care Time/CCT Total # of Minutes Spent Total Time Spent with Patient: Total time spent is greater than 50% in coordination of care (as documented) at patient's floor/unit and/or counseling patient: Coding Level of Care Code 20115 INT INP/OBS CARE 3/75MIN Diagnoses Chest pain R07.9 Chest pain type: unspecified Esophagitis K20.90 Bronchitis J40 Benign essential hypertension I10 Atherogenic dyslipidemia E78.5 Prostate cancer C61 Urinary urgency R39.15 Sleep apnea G47.30 Diabetes E11.9 Hypertension I10 Hypothyroid E03.9 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
[2024-07-08] MEDS ORDERED: GLUCOSE 40% GEL 15 GM TUBE PO PRN (02:09)
[2024-07-08] MEDS ORDERED: CARBOHYDRATES FOR HYPOGLYCEMIA PO PRN (02:09)
[2024-07-08] MEDS ORDERED: GLUCOSE 10 TAB/TUBE PO PRN (02:09)
[2024-07-08] MEDS ORDERED: DEXTROSE 50% 50 ML SYRINGE IV PRN (02:09)
[2024-07-08] MEDS ORDERED: ONDANSETRON INJ 2 MG/ML 2 ML VIAL IV PRN (02:09)
[2024-07-08] MEDS ORDERED: NON-FORMULARY MEDICATION (Semaglutide [Ozempic] 0.25 mg or 0.5 mg (2 mg/3 mL) pen injector SQ SCH (02:09)
[2024-07-08] MEDS ORDERED: ALBUT/IPRATROP 3MG/0.5MG NEB 3 ML VIAL NEB PRN (02:09)
[2024-07-08] MEDS ORDERED: GLUCAGON FOR INJ 1 MG VIAL SQ PRN (02:09)
[2024-07-08] MEDS: ALUMINUM/MAGNESIUM SUSP 30 ML UDC PO STA (02:24)
[2024-07-08] MEDS: LIDOCAINE VISCOUS 2% 15 ML UDC MT STA (02:24)
[2024-07-08 04:47] LABS: Basophils # (auto) 0.04 K/uL (0.00-0.20); Basophils % (auto) 0.5 %; Eosinophils # (auto) 0.17 K/uL (0.00-0.50); Hematocrit (blood only) 42.5 % (42.0-52.0); Hemoglobin 14.4 g/dl (14.0-18.0); Immature Granulocytes # (auto) 0.03 K/uL (0.01-0.20); Immature Granulocytes % (auto) 0.4 %; Lymphocytes # (auto) 1.47 K/uL (1.20-3.40); Lymphocytes % (auto) 17.3 %; Mean Corpuscular Hemoglobin 31.7 pg (25.0-34.0); Mean Corpuscular Hgb Conc 33.9 g/dL (32.0-36.0); Mean Corpuscular Volume 93.6 fL (80.0-100.0); Mean Platelet Volume 11.2 fL (9.4-12.4); Monocytes # (auto) 0.75 K/uL (0.11-0.59); Monocytes % (auto) 8.8 %; Neutrophils # (auto) 6.04 K/uL (1.40-6.50); Platelet Count 108 K/uL (130-400); RDW Coefficient of Variation 14.4 % (11.5-14.5); RDW Standard Deviation 49.1 fL (36.4-46.3); Red Blood Count 4.54 M/uL (4.70-6.10)
[2024-07-08 05:04] LABS: Albumin Level 3.8 gm/dl (3.4-5.0); Anion Gap 8 (3-11); Calcium 8.8 mg/dl (8.6-10.3); Carbon Dioxide 23 mmol/L (21-32); Chloride 107 mmol/L (98-107); Magnesium 1.7 mg/dl (1.7-2.4); Potassium 4.1 mmol/L (3.5-5.1); Sodium 138 mmol/L (136-145)
[2024-07-08 05:10] LABS: Blood Urea Nitrogen 13 mg/dl (6-23); Creatinine Clr Calc Pharmacy 135.3 ml/min; Est GFR (African American) 111.2 ml/min; Est GFR (Non-African American) 95.9 ml/min; Glucose 100 mg/dl (70-99(Fasting)); Phosphorus 5.1 mg/dl (2.5-4.9)
[2024-07-08] MEDS: LEVOTHYROXINE SODIUM 200 MCG TABLET PO SCH (06:28)
[2024-07-08] MEDS: TAMSULOSIN HCL 0.4 MG CAP PO SCH (08:13)
[2024-07-08] MEDS: PANTOprazole 40 MG TAB PO SCH (08:13)
[2024-07-08] MEDS: METOPROLOL SUCC 50MG EXT REL TAB PO SCH (08:13)
[2024-07-08] MEDS: lisinopril 2.5 MG TAB PO SCH (08:13)
--- NOTE | 2024-07-08 08:19 | Electrocardiogram Report ---
Test Reason : Blood Pressure : */* mmHG Vent. Rate : 83 BPM Atrial Rate : 83 BPM P-R Int : 128 ms QRS Dur : 92 ms QT Int : 378 ms P-R-T Axes : 17 -38 33 degrees QTcB Int : 444 ms Normal sinus rhythm Left axis deviation Poor R wave progression, consider anterior TN vs. lead placement vs. LVH Abnormal ECG When compared with ECG of 29-Jan-2015 15:02, QRS axis Shifted left Confirmed by Lance Weaver ([id number]) on 07/08/2024 8:19:02 AM Referred By: REFERRED SELF Confirmed By: Lance Weaver
[2024-07-08 08:42] LABS: Estimated Average Glucose 128 mg/dl; Hemoglobin A1C 6.1 % (4.5-5.6)
[2024-07-08] MEDS ORDERED: MULTIVIT WITH MIN FA LYCOPENE PO SCH (09:00)
[2024-07-08] MEDS ORDERED: [UNRECOGNIZED DRUG - OTHER] PO SCH (09:00)
[2024-07-08] MEDS: INSULIN ASPART PER UNIT CHARGE SC SCH (09:37)
[2024-07-08] MEDS: SUCRALFATE 1 GM/10 ML UDC PO SCH (11:28)
[2024-07-08] MEDS: ATROPINE SULFATE 0.1 MG/ML 10ML SYR IV ONE (13:02)
[2024-07-08] MEDS: METOPROLOL TARTRATE 1 MG/ML VIAL IV ONE (13:03)
[2024-07-08] MEDS: NITROGLYCERIN SL 0.4 MG/TAB TAB ONE (13:04)
[2024-07-08] MEDS: DOBUTamine HCL 12.5 MG/ML 20 ML VIAL IV ONE (13:04)
--- NOTE | 2024-07-08 14:01 | XCELERA ---
[id number] [id number]
[2024-07-08 14:03] VITALS: BP 134/88; PULSE 85; RESP 18; O2SAT 90
--- NOTE | 2024-07-08 15:06 | Discharge Summary ---
Discharge Summary Date of Service July 08, 2024 Principal Dx & Hospital Course #1 = Principal Diagnosis (1) Chest pain: 63-year-old with history of diabetes hypertension and sleep apnea as well as dyslipidemia came to the ED with several days of chest pain. This was in the lower chest/upper abdomen area is bandlike, circumferential and radiating to the back and severe. Feels worse when he gets up and moves around or coughs. It is not exertional. He has never had similar pain. he denies history of heartburn. testing the ED included EKG and serial troponins which were all unremarkable. He does have a leftward axis deviation on his EKG but no acute appearing ST-T segment abnormalities. CTA chest and CT abdomen and pelvis was obtained there was no evidence of PE or dissection, no pneumonia or pleural effusion however he does have significant esophagitis. on exam he has no tenderness to palpation of his chest wall, no tenderness to palpation of his T-spine, he has some paraspinous tenderness bilaterally but nothing severe. He does have multiple cardiac risk factors however so he is at moderate risk of major coronary event in the next few months. I did obtain a dobutamine stress echo which was negative for evidence of cardiac ischemia, previously noted wall motion abnormalities from echo in December of this year have resolved. the chest pain appears to be related to the esophagitis. We have started twice daily proton pump inhibitor, note that there is a drug interaction with his Xtandi which will reduce the efficacy of proton pump inhibitors, if twice daily PPI is ineffective famotidine can be added. I also prescribed 2 weeks of Carafate and he can use Maalox as needed. He is somewhat immunosuppressed by his chemotherapy I could be at risk for CMV or candidal esophagitis, therefore if his symptoms are not improving appropriately he should be referred to gastroenterology to consider endoscopy. I also instructed him to try elevating the head of his bed and stopping NSAIDs. an alternative possibility is that he recently started GLP-1 agonist - could be causing some gastroparesis type symptoms, however there is no nausea vomiting so that seems unlikely to me. could be musculoskeletal but nontender to palpation of chest wall. does not particularly have thoracic back pain and no spinal tenderness on palpation, a T- spine lesion could cause pain radiating around the body wall, but nothing r emarkable was noted on the chest CT. Consider further imaging like MRI if persistent. 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: Notes For Next Care Provider Pain seems related to esophagitis seen on CT Negative dobutamine stress echo today GI referral if slow to improve, consider T-spine imaging with MRI since history of prostate cancer Medication Changes From Visit BID PPI and carafate added, may need to add famotidine since Xtandi decreases efficacy of PPIs Stop NSAIDS if possible Admission HPI Per Admitting Provider The patient is a 63-year-old male with a past medical history including hypertension, obesity, dyslipidemia, prostate cancer with LUTS, history urinary tract infection, diabetes mellitus, hypothyroidism, hypertension, and tobacco abuse disorder. He presents to the emergency department with symptoms of epigastric and substernal chest discomfort, that initially gave about 3 days ago, and became more significant over the past 2 days. He denies any recent travels or sick exposures. He continues to smoke pack per day. He is chronically short of breath but more so over the past few days. He does not take NSAIDs on a regular basis, but does take a baby aspirin daily. He denies any recent change in food or liquid intake. He occasionally drinks alcohol. Discharge Exam PHYSICAL EXAMINATION Last 24h vital signs reviewed, see documentation in flowsheet General: comfortable appearing, no distress HEENT: Normocephalic, atraumatic, pupils round and equal, sclerae anicteric, no conjunctival injection, moist mucus membranes Lungs: Normal respiratory effort. Clear to auscultation bilaterally. No RRW Heart: Regular rate and rhythm, no murmurs. No JVD. no chest wall tenderness back: Mild paraspinous tenderness noted T-spine, no tenderness to palpation of the spinous processes Abdomen: Soft, nontender, nondistended. Bowel sounds present. Extremities: Warm, dry, well-perfused. mild extremity edema. Neuro: Alert and oriented x 4, face symmetric, moves 4 extremities well Psych: Normal affect and behavior Discharge Plan Discharge Items Reason For Visit: CHEST AND EPIGASTRIC PAIN Discharge Diagnosis: Chest pain related to esophagitis Condition on Discharge: Good Activity: Resume your previous activity Non-emergency contact: Primary Care Provider Call non-emergency contact if: you have any medication questions and your symptoms worsen Follow-up/Referrals: Rea Pacheco PA-C [Primary Care Provider] - Diet: Carb Consistent or DM2 and Heart Healthy Addtl Attending Provider Instructions: You were evaluated for chest pain You had a CT angiogram of your chest which ruled out dangerous things like blood clot in your lung, tear in an artery, and there was no evidence of pneumonia etc Esophagitis (inflamed esophagus) was seen on the chest CT - I think this is what is causing your pain You had reassuring EKG and negative blood tests for heart attack, you had a negative stress test - very unlikely that this pain is heart related Esophagitis is when the esophagus becomes inflamed, usually due to uncontrolled acid reflux. 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 acetaminophen max 3000 mg per 24h is safe to take -follow up with primary care within 1-2 weeks. If not significantly improved with above treatment, you can be referred to municipal services manager for further testing/treatment It was a pleasure taking care of you in the hospital Promise Carias MD Pending Studies at Discharge: No Stand-Alone Forms: My [facility] [employer], Smoking Cessation Medications and DC Order Prescriptions: New pantoprazole 40 mg tablet,delayed release (DR/EC) 40 mg PO BID Qty: 60 0RF sucralfate 100 mg/mL suspension 1 g PO ACHS 14 Days Qty: 140 0RF Continued lisinopril 5 mg tablet 2.5 mg PO QAM turmeric 400 mg Capsule 400 mg PO DAILY metformin 500 mg tablet 1,000 mg PO BID atorvastatin 80 mg tablet 80 mg PO HS glyburide 5 mg tablet 5 mg PO BID metoprolol succinate 50 mg tablet extended release 24 hr 50 mg PO QAM levothyroxine [Euthyrox] 200 mcg tablet 200 mcg PO QAM tamsulosin [Flomax] 0.4 mg capsule 0.8 mg PO QAM One-A-Day Men's 50 Plus 400-370 mcg Tablet 1 tab PO DAILY Ozempic 0.25 mg or 0.5 mg (2 mg/3 mL) pen injector 5 mg SUBCUT WK Rx Instructions: take this med every Thursday Xtandi 40 mg capsule 0 mg PO QPM Discontinued ibuprofen 200 mg Capsule 400 mg PO QAM Admission Data Admit Date/Time: 07/08/24 01:06 Attending Provider: Promise Carias Admit Provider: Tony Myers Primary Care Provider: Rea Pacheco Other Providers: Tony Myers Hospital Stay Data Consultations 07/07/24 23:47 ED Decision to Admit Stat Diagnostic Imagining Performed 07/07/24 18:50 CT abd pelvis IV con only Stat CT angio chest PE protocol Stat Pending Results Patient Have Any Pending Studies at Discharge: No Discharge Instructions Given to Patient (Per Discharging Provider) You were evaluated for chest pain You had a CT angiogram of your chest which ruled out dangerous things like blood clot in your lung, tear in an artery, and there was no evidence of pneumonia etc Esophagitis (inflamed esophagus) was seen on the chest CT - I think this is what is causing your pain You had reassuring EKG and negative blood tests for heart attack, you had a negative stress test - very unlikely that this pain is heart related Esophagitis is when the esophagus becomes inflamed, usually due to uncontrolled acid reflux. This can sometimes be VERY painful -take high dose acid suppression (pantoprazole) twice a day for 4-6 weeks then reduce to daily and continue fci -your prostate cancer medicine can reduce the effectiveness of pantoprazole and similar medications, famotidine could be added if necessary -take carafate for a few weeks this will help coat your stomach and esophagus -you can use maalox as directed -elevate the head of your bed -stop taking ibuprofen or other NSAIDS like naprozen - these can cause ulcerations and inflammation of the GI tract. acetaminophen max 3000 mg per 24h is safe to take -follow up with primary care within 1-2 weeks. If not significantly improved with above treatment, you can be referred to municipal services manager for further testing/treatment It was a pleasure taking care of you in the hospital Promise Carias MD Total Time Total Time Spent Total Time Spent (In Minutes): I personally spent: 45 minutes, (in excess of time my colleague spent evaluating and admitting the patient this morning) today on clinical care activities including: reviewing chart notes and vital signs reviewing labs reviewing studies examining and counseling the patient writing orders, prescriptions, discharge instruction documentation Coding Level of Care Code INP/OBS EV SAME DAY LV 3,85MIN Diagnoses Chest pain R07.9 Chest pain type: unspecified Esophagitis K20.90 Bronchitis J40 Benign essential hypertension I10 Atherogenic dyslipidemia E78.5 Prostate cancer C61 Urinary urgency R39.15 Sleep apnea G47.30 Diabetes E11.9 Hypertension I10 Hypothyroid E03.9 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
[2024-07-08] MEDS ORDERED: PANTOprazole 40 MG in SYRINGE 0 ML IV SCH (21:00)
[2024-07-08] MEDS ORDERED: ATORVASTATIN 40 MG TAB PO SCH (21:00)
== END 2024-07-08 16:35 | disposition home or self-care (01) ==
LOC: EDINP 18:07 → ED 18:07 → SUATTDRO 07-08 01:06 → EDINP 07-08 15:48